=== PATIENT | male | born 1950 | race Caucasian/White ===

== ENCOUNTER → 2016-09-10 | Outpatient (CLI) | payer MEDICARE ==
--- NOTE | ~2016-09-10 | US10 ---
[id number] [facility] [address] [place], [place] [address] [id number] O MR#: [id number] Acc #: [id number] NAME: IESHA KIRBY : 1950 SEX: M STUDY DATE/TIME: 09/10/2016 11:27 UNIT: [facility]US ROOM: STUDY DESCRIPTION: US Aorta Complete Attending Physician: Ester Gonzalez A.P.R.N. Referring Physician: Ester Gonzalez A.P.R.N. Ordering Physician: Ester Gonzalez A.P.R.N. Primary Care Physician: Ester Gonzalez A.P.R.N. MEDICAL IMAGING REPORT This report is preliminary unless electronic signature is present EXAM Abdominal aortic ultrasound with Doppler imaging, 09/10/2016. HISTORY Screening for abdominal aortic aneurysm. Former history of smoking. COMPARISON CT abdomen and pelvis with contrast 03/22/2013. FINDINGS No abdominal aortic aneurysm is seen. The proximal aorta measures up to 2.2 cm, mid aorta 2.6 cm, distal aorta 1.8 cm. Normal color and spectral Doppler flow is seen throughout the abdominal aorta. Mild common iliac arteries are of normal caliber, measuring up to 1.9 cm on the right. IMPRESSION Normal caliber of the abdominal aorta. No aneurysm is seen. Dictated by... Sheri Bone M.D. THIS IS AN ELECTRONICALLY VERIFIED REPORT Sheri Bone M.D. at 09/11/2016 9:40 AM NAKUL/[place] TD: 09/10/2016 14:32 JOB #: [id number] MEDICAL IMAGING REPORT Page 1 of 1 COPY
== END | disposition home or self-care (01) ==
LOC: CGUS 10:16
DX: Z13.6 Encounter for screening for cardiovascular disorders (principal); Z87.891 Personal history of nicotine dependence
CPT/HCPCS: 76770